=== PATIENT | female | born 1975 | race Caucasian/White ===

== ENCOUNTER → 2018-11-18 17:13 | Outpatient (CLI) | payer MEDICAID, SELFPAY ==
[2018-11-23 17:10] LABS: HPV Reflexed? NOT INDICATED
== END ==
PROVIDERS: Referring Provider Obstetrics & Gynecology; Visit Provider Obstetrics & Gynecology
DX: Z12.4 Encounter for screening for malignant neoplasm of cervix (principal)
CPT/HCPCS: 88175; G0145

== ENCOUNTER → 2018-12-13 14:50 | Outpatient (CLI) | payer MEDICAID, SELFPAY ==
--- NOTE | 2018-12-13 14:53 | BI_ITS ---
MAMMOGRAPHY - BILATERAL SCREENING REASON FOR EXAM: Female, 43 years old. Routine annual screening examination. PERTINENT HISTORY: Aunt with breast cancer. TECHNIQUE: Digital bilateral breast olegario (3D mammographic acquisition) in the CC and MLO projections. 2-D mediolateral oblique (MLO) and craniocaudad (CC) views of both breasts were obtained. CAD: Full Field Digital Mammography with Computer Added Detection was performed. COMPARISON: Comparison is made with prior study dated November 13, 2014. FINDINGS: Breast Composition: The breasts are heterogeneously dense, which may obscure small masses. There are no dominant masses or suspicious calcifications. Stable benign-appearing bilateral axillary lymph nodes. No other significant abnormalities are identified. There has been no significant change since the prior study. BI/SCREENING MAMM (CAD), BILAT IMPRESSION: Stable bilateral screening mammogram. Yearly follow-up mammogram recommended. (A) ASSESSMENT CATEGORY: BIRADS Category 2: Benign. A letter regarding these results will be sent to the patient by the facility within 30 days. Approximately 10% of breast cancers are not detected by mammography. A normal mammogram should not delay biopsy of a clinically suspicious abnormality. [id number] Electronically Signed: Brent Martinez, at 15:53 EDT , Service support ,
== END ==
PROVIDERS: Referring Provider Obstetrics & Gynecology; Visit Provider Obstetrics & Gynecology
DX: Z12.31 Encounter for screening mammogram for malignant neoplasm of breast (principal); Z80.3 Family history of malignant neoplasm of breast
CPT/HCPCS: 77063; 77067

== ENCOUNTER 2020-01-09 18:40 | Emergency (ER) | payer OTHER, SELFPAY ==
[2020-01-09 18:41] VITALS: BP 113/59; PULSE 66; RESP 18; TEMP 36.4; O2SAT 100; BMI 23.0
--- NOTE | 2020-01-09 18:51 | RAD_ITS ---
STUDY: X-RAY - LEFT TIBIA AND FIBULA REASON FOR EXAM: Female, 44 years old. Pain after trauma TECHNIQUE: 3 view(s) of the tibia and fibula were obtained. COMPARISON: None. FINDINGS: Normal visualized tibia. Normal visualized fibula. Incidental note made of an oval bone island in the distal tibia The soft tissue structures are unremarkable. RAD/Tibia & Fibula 2 Views IMPRESSION: No acute or suspicious findings Electronically Signed: Chema Soni MD at 19:27 EDT , Service support ,
--- NOTE | 2020-01-09 18:53 | ED.DCSUM_ITS ---
- ER Visit Summary Date of Service: 01/09/20 Chief Complaint: Left leg injury History of Present Illness: The patient is a 44 F who has a left leg injury. She was trying to sort a bowl when the ball knocked a gate over onto her left leg. She sustained a large abrasion to the left lateral calf area. She now has pain in this left leg. Is worse with walking. She took no medications for this at home. Denies any other injuries. Physical Examination: Vital signs are reviewed. Left leg, ankle and foot exam shows some mild diffuse tenderness. There is some focal swelling of the left lateral calf. She has diffuse abrasions to the left lateral calf down to the ankle. She has full range of motion with pain in these areas. She has a 2+ DP pulse. Test Results: X-rays are negative for fracture Emergency Department Course and Treatment: The patient's tetanus was updated. Her wounds were cleansed. She does have multiple abrasions but no broken bones. Patient was educated to use ice, elevation and NSAIDs for pain at home. She will follow-up with her PCP. Treatment Plan: [] Disposition: Discharge Impression: Lower leg contusion, left lower leg abrasions This note was generated with [employer] dictation software. It may contain incorrect words, spelling, and punctuation that were not noted in review of the chart prior to signing ED Disposition - Plan for ED Patient: Disposition: Home or Assisted Living Instructions: ED EXTREMITY CONTUSION Lower Referrals: Care Physician,No Primary [Primary Care Provider] -
[2020-01-09] MEDS: Diphth,Pertuss(Acell),Tet Vac 0.5 ML Vial IM (18:59)
[2020-01-09] MEDS: Naproxen 500 MG Tablet PO (18:59)
--- NOTE | 2020-01-09 19:10 | RAD_ITS ---
STUDY: X-RAY - LEFT FOOT CLINICAL: Female, 44 years old. Pain after trauma TECHNIQUE: 3 view(s) of the foot. COMPARISON: None. FINDINGS: Normal talus, calcaneus, and tarsal bones. Normal visualized subtalar, talonavicular, calcaneocuboid, tarsal and tarsometatarsal articulations. Normal metatarsi. Normal metatarsophalangeal joint of the great toe. Normal tibial and fibular sesamoid bones. Normal interphalangeal joint of the great toe. Normal phalanges of the great toe. Normal second through fifth metatarsophalangeal joints. Normal interphalangeal joints and phalanges of the lesser toes. The soft tissue structures are unremarkable. Incidental note made of an oval bone island in the distal tibia. RAD/Foot min 3 Views IMPRESSION: Normal x-ray examination of the foot. Electronically Signed: Chema Soni MD at 19:28 EDT , Service support ,
== END 2020-01-09 19:55 | disposition home or self-care (01) ==
PROVIDERS: Emergency Provider Emergency Medicine
DX: S80.12XA Contusion of left lower leg, initial encounter (principal); S80.812A Abrasion, left lower leg, initial encounter; W22.8XXA Striking against or struck by other objects, initial encounter; Y93.9 Activity, unspecified; Y92.9 Unspecified place or not applicable
CPT/HCPCS: 73590; 73630; 90471; 90715; 99283

== ENCOUNTER → 2021-11-29 | Outpatient (CLI) | payer OTHER, SELFPAY ==
--- NOTE | 2021-11-29 11:57 | BI_ITS ---
MAMMOGRAPHY - BILATERAL SCREENING REASON FOR EXAM: Female, 46 years old. Routine annual screening examination. PERTINENT HISTORY: Aunt with breast cancer. TECHNIQUE: Digital bilateral breast francisco (3D mammographic acquisition) in the CC and MLO projections. 2-D mediolateral oblique (MLO) and craniocaudad (CC) views of both breasts were obtained. CAD: Full Field Digital Mammography with Computer Added Detection was performed. COMPARISON: Comparison is made with prior study dated 12/13/2018 and 11/13/2014. FINDINGS: Breast Composition: The breasts are heterogeneously dense, which may obscure small masses. There are no dominant masses or suspicious calcifications. Stable benign-appearing bilateral axillary lymph nodes. No other significant abnormalities are identified. There has been no significant change since the prior study. BI/SCRN MAMM (CAD)W/FRANCISCO BILAT IMPRESSION: Stable bilateral screening mammogram. Yearly follow-up mammogram recommended. (A) ASSESSMENT CATEGORY: BIRADS Category 2: Benign. A letter regarding these results will be sent to the patient by the facility within 30 days. Approximately 10% of breast cancers are not detected by mammography. A normal mammogram should not delay biopsy of a clinically suspicious abnormality. [id number] Electronically Signed: Brent Martinez MD at 13:16 EDT ,
== END | disposition home or self-care (01) ==
LOC: OPBI 11:54
PROVIDERS: Visit Provider Obstetrics & Gynecology
DX: Z12.31 Encounter for screening mammogram for malignant neoplasm of breast (principal)
CPT/HCPCS: 77063; 77067

== ENCOUNTER → 2023-08-10 | Outpatient (CLI) | payer OTHER, SELFPAY ==
--- OUTSIDE RECORDS SUMMARY | 2023-08-10 09:57 | XMS RPT_ITS | CCD ---
Author Name Unknown Address [facility] [address] [place] [address] Organization [facility] Care Team Providers Care Assistant Food Service Director Name Role Phone Unavailable Primary Care Provider Unavailabl e Medications Current Medications Medication Drug Class(es) Dates Sig (Normalized) Sig (Original) nitrofurantoin, macrocrystals 25 mg / nitrofurantoin, monohydrate 75 mg oral capsule (2 sources) Nitrofuran Antibacterial Start: 03-04-2023 End: 03-11-2023 take 1 capsule by mouth twice daily at mealtime nitrofurantoin monohydrate and macrocrystal (MACROBID) 100 mg capsule Take 1 capsule by mouth twice daily with meals for 7 days. 14 capsule 0 03/04/2023 03/11/2023 Active Problems Problem Classification Problem Date Documented Da te Episodic/Chronic Genitourinary symptoms and ill-defined conditions (1 source) Increased frequency of urination; Translations: [Frequency of micturition] Episodic Urinary tract infections (1 source) Acute urinary tract infection; Translations: [Urinary tract infection, site not specified] 03-04-2023 Episodic Results Test Name Value Interpretation Reference Range Facil ity Vital Signs Date Time Vital Sign Value Performing Clinician Nirali turk 03-04-2023 08:17-0400 Body temperature 98.4 [degF] Tammy Cardozo PA-C Work Phone: [facility] 03-04-2023 08:17-0400 Body weight 73.85 kg Tammy Cardozo PA-C Work Phone: [facility] 03-04-2023 08:17-0400 Diastolic blood pressure 78 mm[Hg] Tammy Cardozo PA-C Work Phone: [facility] 03-04-2023 08:17-0400 Heart rate 76 /min Tammy Athy PA-C Work Phone: [facility] 03-04-2023 08:17-0400 Respiratory rate 16 /min Tammy Athy PA-C Work Phone: [facility] 03-04-2023 08:17-0400 SaO2% (BldA) [Mass fraction] 98 % Tammy Athy PA-C Work Phone: [facility] 03-04-2023 08:17-0400 Systolic blood pressure 118 mm[Hg] Tammy Athy PA-C Work Phone: [facility] 01-21-2023 10:56-0400 Body temperature 97.7 [degF] Tammy Athy PA-C Work Phone: [facility] 01-21-2023 10:56-0400 Body weight 73.94 kg Tammy Athy PA-C Work Phone: [facility] 01-21-2023 10:56-0400 Diastolic blood pressure 86 mm[Hg] Tammy Athy PA-C Work Phone: [facility] 01-21-2023 10:56-0400 Heart rate 80 /min Tammy Athy PA-C Work Phone: [facility] 01-21-2023 10:56-0400 Respiratory rate 18 /min Tammy Athy PA-C Work Phone: [facility] 01-21-2023 10:56-0400 SaO2% (BldA) [Mass fraction] 98 % Tammy Athy PA-C Work Phone: [facility] 01-21-2023 10:56-0400 Systolic blood pressure 124 mm[Hg] Tammy Athy PA-C Work Phone: [facility] Encounters Encounter Date Encounter Type Care Provider Facility Start: 03-04-2023 End: 03-04-2023 ambulatory Facility:[facility] Start: 03-04-2023 End: 03-04-2023 Patient encounter procedure Tammy King Athy PA-C Work Phone: [facility] Procedures Date Procedure Procedure Detail Performing Clinician Start: 03-04-2023 Urnls dip stick/tabl et rgnt auto w/o microscopy Tammy Cardozo PA-C Work Phone: Start: 01-21-2023 Urnls dip stick/tabl et rgnt auto w/o microscopy Tammy Cardozo PA-C Work Phone: Plan of Treatment Date Care Activity Detail Author Start: 04-03-2023 Influenza vaccination [facility] Start: 08-03-2022 DEPRESSION ASSESSMENT DEPRESSION ASSESSMENT [facility] Start: 2018 COLOGUARD (FIT-DNA) COLOGUARD (FIT-DNA) [facility] Start: 2018 Colonoscopy COLONOSCOPY [facility] Start: 2018 COLORECTAL CANCER SCREENING COLORECTAL CANCER SCREENING [facility] Start: [address] COLONOGRAPHY [facility] Start: 2018 DIABETES SCREEN DIABETES SCREEN [facility] Start: 2018 FECAL OCCULT BLOOD FECAL OCCULT BLOOD [facility] Start: 2018 LIPID SCREEN LIPID SCREEN [facility] Start: 2018 SIGMOIDOSCOPY SIGMOIDOSCOPY [facility] Start: 2013 Mammography MAMMOGRAM [facility] Start: 2003 HPV TESTING HPV TESTING [facility] Start: 1994 PAP TESTING PAP TESTING [facility] Start: 1992 Urine microalbumin profile DTAP,TDAP,TD (1 - Tdap) [facility] Start: 1991 HEPATITIS C SCREENING HEPATITIS C SCREENING [facility] Start: 1991 HIV SCREENING HIV SCREENING [facility] Start: 03-08-1974 COVID-19 VACCINE (#1) COVID-19 VACCINE (#1) [facility] Start: 1973 HEPATITIS B (1 of 3 - 3-dose series) HEPATITIS B (1 of 3 - 3-dose series) [facility] Bacteria identified in Urine by Culture URINE CULTURE Microbiology Routine Urinary frequency Ordered: 01/21/2023 [facility] Work Phone: Payers Date Payer Category Payer Private Health Insurance MARLA FLORE[employer] P[employer] [id number] 2021-Present [phone] [address] [place] [address] O [id number] 2021 Private Health Insurance [facility] [id number] Social History Date Type Detail Facility Start: 04-02-2021 End: 01-21-2023 Tobacco smoking status NHIS Never smoked tobacco [facility] Start: 04-02-2021 End: 01-21-2023 Tobacco use and exposure Smokeless tobacco non-user [facility] Start: 1975 Sex Assigned At Not on file [facility] Start: 03-04-2023 History of Social function [facility] Start: 03-04-2023 Tobacco use panel [facility] Progress note 03-04-2023 Note Date & Type Note Facility 03-04-2023 Note HNO ID: [id number] Author: Tammy Cardozo PA-C Service: ? Author Type: Physician Director Of Application Development Type: Progress Notes Filed: 03/04/2023 8:35 AM Note Text: This note was created using Moka. Lesia Anne is a 47 year old female. HPI Patient presents with urinary frequency, burning, urgency over the past day. No blood in urine. She has had some low back pain. No abdominal pain. No fever or vomiting. She did have a UTI about a month and a half ago. Symptoms completely went away from that. She is sexually active. No new partners. No vaginal itching or discharge. Last menstrual cycle was the beginning of January, patient denies chance of . Review of Systems Constitutional: Negative. HENT: Negative. Respiratory: Negative. Cardiovascular: Negative. Gastrointestinal: Negative. Genitourinary: Positive for dysuria, frequency and urgency. Negative for flank pain, hematuria, pelvic pain, vaginal bleeding, vaginal discharge and vaginal pain. Musculoskeletal: Positive for back pain. All other systems reviewed and are negative. No past medical history on file. Current Outpatient Medications Medication Sig Dispense Refill nitrofurantoin monohydrate and macrocrystal (MACROBID) 100 mg capsule Take 1 capsule by mouth twice daily with meals for 7 days. 14 capsule 0 No current facility-administered medications for this visit. No past surgical history on file. No family history on file. Social History Tobacco Use Smoking status: Never Smokeless tobacco: Never Objective BP 118/78 Pulse 76 Temp 36.9 ?C (98.4 ?F) Resp 16 Wt 73.8 kg (162 lb 12.8 oz) LMP 12/03/2022 (Within Days) SpO2 98% Physical Exam Vitals reviewed. Constitutional: Appearance: Normal appearance. HENT: Head: Normocephalic and atraumatic. Cardiovascular: Rate and Rhythm: Normal rate and regular rhythm. Heart sounds: Normal heart sounds. Pulmonary: Effort: Pulmonary effort is normal. Breath sounds: Normal breath sounds. Abdominal: General: Abdomen is flat. Palpations: Abdomen is soft. Tenderness: There is no abdominal tenderness. There is no right CVA tenderness, left CVA tenderness or guarding. Skin: General: Skin is warm and dry. Neurological: Mental Status: She is alert. Assessment and Plan ASSESSMENT/PLAN: 1. Acute UTI - ICD9: 599.0, ICD10: N39.0 acute - UA - patient took azo this am - Send urine for culture - Begin treatment with Macrobid 100 mg BID for 7 days - UA DIP, URINE (POC) - URINE CULTURE Tammy Cardozo PA-C [facility] History of Present illness Narrative 03-04-2023 Tammy Cardozo PA-C - 03/04/2023 8:33 AM EDT Note Date & Type Note Facility 03-04-2023 History of Presen t illness Narrative This note was created using Ecopolriter. Subjective Sharron Anne is a 47 year old female. HPI Patient presents with urinary frequency, burning, urgency over the past day. No blood in urine. She has had some low back pain. No abdominal pain. No fever or vomiting. She did have a UTI about a month and a half ago. Symptoms completely went away from that. She is sexually active. No new partners. No vaginal itching or discharge. Last menstrual cycle was the beginning of January, patient denies chance of . Review of Systems Constitutional: Negative. HENT: Negative. Respiratory: Negative. Cardiovascular: Negative. Gastrointestinal: Negative. Genitourinary: Positive for dysuria, frequency and urgency. Negative for flank pain, hematuria, pelvic pain, vaginal bleeding, vaginal discharge and vaginal pain. Musculoskeletal: Positive for back pain. All other systems reviewed and are negative. No past medical history on file. Current Outpatient Medications Medication Sig Dispense Refill nitrofurantoin monohydrate and macrocrystal (MACROBID) 100 mg capsule Take 1 capsule by mouth twice daily with meals for 7 days. 14 capsule 0 No current facility-administered medications for this visit. No past surgical history on file. No family history on file. Social History Tobacco Use Smoking status: Never Smokeless tobacco: Never Objective BP 118/78 Pulse 76 Temp 36.9 C (98.4 F) Resp 16 Wt 73.8 kg (162 lb 12.8 oz) LMP 12/03/2022 (Within Days) SpO2 98% Physical Exam Vitals reviewed. Constitutional: Appearance: Normal appearance. HENT: Head: Normocephalic and atraumatic. Cardiovascular: Rate and Rhythm: Normal rate and regular rhythm. Heart sounds: Normal heart sounds. Pulmonary: Effort: Pulmonary effort is normal. Breath sounds: Normal breath sounds. Abdominal: General: Abdomen is flat. Palpations: Abdomen is soft. Tenderness: There is no abdominal tenderness. There is no right CVA tenderness, left CVA tenderness or guarding. Skin: General: Skin is warm and dry. Neurological: Mental Status: She is alert. Assessment and Plan ASSESSMENT/PLAN: 1. Acute UTI - ICD9: 599.0, ICD10: N39.0 acute - UA - patient took azo this am - Send urine for culture - Begin treatment with Macrobid 100 mg BID for 7 days - UA DIP, URINE (POC) - URINE CULTURE Tammy Cardozo PA-C documented in this encounter [facility] Progress note 01-21-2023 Note Date & Type Note Facility 01-21-2023 Note HNO ID: [id number] Author: aTmmy Cardozo PA-C Service: ? Author Type: Physician Director Of Application Development Type: Progress Notes Filed: 01/21/2023 11:31 AM Note Text: This note was created using Ecopolriter. Lesia Anne is a 47 year old female. HPI Patient presents with a chief complaint of urinary frequency, urgency and dysuria since last evening. She denies fever, abdominal pain or back pain. No vomiting. Denies vaginal itching or discharge. No concern for STD. Denies chance of . Review of Systems Constitutional: Negative. HENT: Negative. Respiratory: Negative. Cardiovascular: Negative. Gastrointestinal: Negative. Genitourinary: Positive for dysuria, frequency and urgency. Negative for hematuria, pelvic pain, vaginal bleeding, vaginal discharge and vaginal pain. Musculoskeletal: Negative for back pain. All other systems reviewed and are negative. No past medical history on file. Current Outpatient Medications Medication Sig Dispense Refill nitrofurantoin monohydrate and macrocrystal (MACROBID) 100 mg capsule Take 1 capsule by mouth twice daily with meals for 5 days. 10 capsule 0 No current facility-administered medications for this visit. No past surgical history on file. No family history on file. Social History Tobacco Use Smoking status: Never Smokeless tobacco: Never Objective BP 124/86 Pulse 80 Temp 36.5 ?C (97.7 ?F) Resp 18 Wt 73.9 kg (163 lb) LMP 12/03/2022 (Within Days) SpO2 98% Physical Exam Vitals reviewed. Constitutional: Appearance: Normal appearance. HENT: Head: Normocephalic and atraumatic. Cardiovascular: Rate and Rhythm: Normal rate and regular rhythm. Heart sounds: Normal heart sounds. Pulmonary: Effort: Pulmonary effort is normal. Breath sounds: Normal breath sounds. Abdominal: General: Abdomen is flat. Palpations: Abdomen is soft. Tenderness: There is no abdominal tenderness. There is no right CVA tenderness, left CVA tenderness or guarding. Skin: General: Skin is warm and dry. Neurological: General: No focal deficit present. Mental Status: She is alert and oriented to person, place, and time. Assessment and Plan ASSESSMENT/PLAN: 1. Urinary frequency - ICD9: 788.41, ICD10: R35.0 acute - UA positive for zaira esterase and hematuria, nitrates - Send urine for culture - Patient education for prevention given - UA DIP, URINE (POC) - URINE CULTURE Tammy Cardozo PA-C [facility] History of Present illness Narrative 01-21-2023 Tammy Cardozo PA-C - 01/21/2023 11:28 AM EDT Note Date & Type Note Facility 06-21-2023 History of Presen t illness Narrative This note was created using Medivanceter. Lesia Anne is a 47 year old female. HPI Patient presents with a chief complaint of urinary frequency, urgency and dysuria since last evening. She denies fever, abdominal pain or back pain. No vomiting. Denies vaginal itching or discharge. No concern for STD. Denies chance of . Review of Systems Constitutional: Negative. HENT: Negative. Respiratory: Negative. Cardiovascular: Negative. Gastrointestinal: Negative. Genitourinary: Positive for dysuria, frequency and urgency. Negative for hematuria, pelvic pain, vaginal bleeding, vaginal discharge and vaginal pain. Musculoskeletal: Negative for back pain. All other systems reviewed and are negative. No past medical history on file. Current Outpatient Medications Medication Sig Dispense Refill nitrofurantoin monohydrate and macrocrystal (MACROBID) 100 mg capsule Take 1 capsule by mouth twice daily with meals for 5 days. 10 capsule 0 No current facility-administered medications for this visit. No past surgical history on file. No family history on file. Social History Tobacco Use Smoking status: Never Smokeless tobacco: Never Objective BP 124/86 Pulse 80 Temp 36.5 C (97.7 F) Resp 18 Wt 73.9 kg (163 lb) LMP 12/03/2022 (Within Days) SpO2 98% Physical Exam Vitals reviewed. Constitutional: Appearance: Normal appearance. HENT: Head: Normocephalic and atraumatic. Cardiovascular: Rate and Rhythm: Normal rate and regular rhythm. Heart sounds: Normal heart sounds. Pulmonary: Effort: Pulmonary effort is normal. Breath sounds: Normal breath sounds. Abdominal: General: Abdomen is flat. Palpations: Abdomen is soft. Tenderness: There is no abdominal tenderness. There is no right CVA tenderness, left CVA tenderness or guarding. Skin: General: Skin is warm and dry. Neurological: General: No focal deficit present. Mental Status: She is alert and oriented to person, place, and time. Assessment and Plan ASSESSMENT/PLAN: 1. Urinary frequency - ICD9: 788.41, ICD10: R35.0 acute - UA positive for zaira esterase and hematuria, nitrates - Send urine for culture - Patient education for prevention given - UA DIP, URINE (POC) - URINE CULTURE Tammy Cardozo PA-C documented in this encounter [facility] Progress note 01-21-2023 Note Date & Type Note Facility 01-21-2023 Note HNO ID: [id number] Author: Namrata Morgan Provider Service: ? Author Type: Physician Type: Progress Notes Filed: 01/21/2023 12:24 AM Note Text: null (CCF:Not available [id number]) Visit Summary for Sharron Anne - Gender: Female - Date of : 1975 ( ) Date: - Duration: 3 minutes Patient: Sharron Anne Provider: Kiesha Ardon Patient Contact Information Address [address] [place] [address] [phone] Visit Topics Uti symptoms [Added By: Self - 2023-01-21] Triage Questions REQUIRED: Do you have Medicare or Medicaid Insurance?Answer [No] Do you have a cough, shortness of breath, difficulty breathing, fever, chills, headache, sore throat, muscles aches, acute change in smell or taste?Answer [No] Have you been in contact with anyone confirmed with COVID 19 or suspected of having COVID 19 within the past 14 days?Answer [No] Do you have any vulnerable family members in the home (, , weak immune system, lung disease, active cancer, elderly)?Answer [No] Do you have any of the following: weak immune system, asthma or chronic lung disease, kidney problems and on dialysis, active cancer, diabetes or heart disease or high blood pressure, HIV or organ transplant?Answer [No] Are you currently working in a healthcare facility?Answer [No] What is the address where you are currently located? This is important in case of a medical emergency.Answer [[address]] Please enter a number I can contact you in the event we are disconnected.Answer [[phone]] Conversation Transcripts [Notification] You are connected with Kiesha Ardon Family Physician.[Notification] Sharron Echevarriaz is located in [place].[Notification] Sharron Cecil has shared health history...[Notification] Kiesha Ardon has added a diagnosis/procedure code.[Notification] Kiesha Solisen has added a prescription.[Notification] Kiesha Ardon has added a prescription. Diagnosis Acute cystitis without hematuria Value: N30.00 Code: ICD-10-CM Procedures Value: [id number] Code: CPT-4 OL DIG E/M SVC 11-20 MIN Medications Prescribed Pyridium Dose : 1 tablet Strength : 200 mg Route : oral Frequency : 3 times a day. Refills : 0 Instructions to the Pharmacist : Substitutions allowed Macrobid Dose : 1 capsule Strength : 100 mg Route : oral Frequency : 2 times a day. Refills : 0 Instructions to the Pharmacist : Substitutions allowed Provider Notes Mode of Communication: Video History: This patient has been experiencing urinary symptoms, including: burning, frequency and urgency of urination. There has been no fever, back pain, discharge or significant abdominal pain. Complications from UTI such has hospitalization or resistance: nonePast medical history: NoneMedications: NoneAllergies: NKDA Exam:Gen: Well appearingsounding, in no acute distressAbdomen: no significant TTPCostovertebral angle: Nontender Assessment: Acute cystitis Diagnosis code: N30.00 Acute cystitis without hematuria 1. Medications:abx as below2. Home care:Increase fluid intakeAcetaminophen or ibuprofen as needed for pain or feverMay use OTC Phenazopyridine (Pyridium) up to three times daily as needed for pain3. Referral or follow up:As needed for worsening or if no improvement in 3 daysIf male or a child, may need urgent follow up for urine culture4. Medical decision making:The patient will be treated empirically based on symptoms. Discussed with the patient that there should be some improvement after 48 hours of abx use. Seek in person care if not improving of if symptoms acutely worsens. Additional recommendations:1. If you received a prescription at this visit and you have a question or problem please call [phone] for prescription assistance2. Please print a copy of this note and send it to your regular doctor, or take it to your next visit so it may be included in your medical record 3. Please see your primary care provider on an annual basis or more frequently if directedE Electronically signed by: Kiesha Ardon( ) [facility] History of Present illness Narrative 01-21-2023 [facility] Provider - 01/21/2023 12:18 AM EDT Note Date & Type Note Facility 01-21-2023 History of Presen t illness Narrative null (CCF:Not available AMW:[id number]) Visit Summary for Sharron Anne - Gender: Female - Date of : 1975 ( ) Date: - Duration: 3 minutes Patient: Sharron Anne Provider: Kiesha Ardon Patient Contact Information Address [address] [place] [phone] Visit Topics Uti symptoms [Added By: Self - 2023-01-21] Triage Questions REQUIRED: Do you have Medicare or Medicaid Insurance?Answer [No] Do you have a cough, shortness of breath, difficulty breathing, fever, chills, headache, sore throat, muscles aches, acute change in smell or taste?Answer [No] Have you been in contact with anyone confirmed with COVID 19 or suspected of having COVID 19 within the past 14 days?Answer [No] Do you have any vulnerable family members in the home (, , weak immune system, lung disease, active cancer, elderly)?Answer [No] Do you have any of the following: weak immune system, asthma or chronic lung disease, kidney problems and on dialysis, active cancer, diabetes or heart disease or high blood pressure, HIV or organ transplant?Answer [No] Are you currently working in a healthcare facility?Answer [No] What is the address where you are currently located? This is important in case of a medical emergency.Answer [[address] [facility]] Please enter a number I can contact you in the event we are disconnected.Answer [[phone]] Conversation Transcripts [Notification] You are connected with Kiesha Ardon Family Physician.[Notification] Sharron Anne is located in [place].[Notification] Sharron Anne has shared health history...[Notification] Kiesha Ardon has added a diagnosis/procedure code.[Notification] Kiesha Ardon has added a prescription.[Notification] Kiesha Ardon has added a prescription. Diagnosis Acute cystitis without hematuria Value: N30.00 Code: ICD-10-CM Procedures Value: [id number] Code: CPT-4 OL DIG E/M SVC 11-20 MIN Medications Prescribed Pyridium Dose : 1 tablet Strength : 200 mg Route : oral Frequency : 3 times a day. Refills : 0 Instructions to the Pharmacist : Substitutions allowed Macrobid Dose : 1 capsule Strength : 100 mg Route : oral Frequency : 2 times a day. Refills : 0 Instructions to the Pharmacist : Substitutions allowed Provider Notes Mode of Communication: Video History: This patient has been experiencing urinary symptoms, including: burning, frequency and urgency of urination. There has been no fever, back pain, discharge or significant abdominal pain. Complications from UTI such has hospitalization or resistance: nonePast medical history: NoneMedications: NoneAllergies: NKDA Exam:Gen: Well appearing\sounding, in no acute distressAbdomen: no significant TTPCostovertebral angle: Nontender Assessment: Acute cystitis Diagnosis code: N30.00 Acute cystitis without hematuria 1. Medications:abx as below2. Home care:Increase fluid intakeAcetaminophen or ibuprofen as needed for pain or feverMay use OTC Phenazopyridine (Pyridium) up to three times daily as needed for pain3. Referral or follow up:As needed for worsening or if no improvement in 3 daysIf male or a child, may need urgent follow up for urine culture4. Medical decision making:The patient will be treated empirically based on symptoms. Discussed with the patient that there should be some improvement after 48 hours of abx use. Seek in person care if not improving of if symptoms acutely worsens. Additional recommendations:1. If you received a prescription at this visit and you have a question or problem please call [phone] for prescription assistance2. Please print a copy of this note and send it to your regular doctor, or take it to your next visit so it may be included in your medical record 3. Please see your primary care provider on an annual basis or more frequently if directedE \Electronically signed by: Kiesha Ardon( ) documented in this encounter [facility] Evaluation note Note Date & Type Note Facility documented in this encounter [facility] Evaluation note Note Date & Type Note Facility documented in this encounter [facility] Summary Purpose Family History No Family History Records Found Advance Directives No Advanced Directives Records Found Additional Source Comments Source Comments (unrecognize d section and content) In the event this informatio n is protected by the Federal Confidentiality of Alcohol and Drug Abuse Patient Records regulations: The Federal rules restrict any use of the information to criminally investigate or prosecute any alcohol or drug abuse patient.[facility] the event this information is protected by the Federal Confidentiality of Alcohol and Drug Abuse Patient Records regulations: The Federal rules restrict any use of the information to criminally investigate or prosecute any alcohol or drug abuse [facility] the event this information is protected by the Federal Confidentiality of Alcohol and Drug Abuse Patient Records regulations: The Federal rules restrict any use of the information to criminally investigate or prosecute any alcohol or drug abuse patient.[facility] Reason for Visit (unrecogniz ed section and content) Reason Comments Urinary Problem Burning, freq, urge, x 1 day, INFORMATION SOURCE (unrecogn ized section and content) FOR RECORDS PERTAINING TO PATIENTS WHO ARE OR HAVE BEEN ENROLLED IN A CHEMICAL DEPENDENCY/SUBSTANCEABUSE PROGRAM, SOME INFORMATION MAY BE OMITTED. This clinical summary was aggregated from multiple sources. Caution should be exercised in using it in the provision of clinical care. This summary normalizes information from multiple sources, and as a consequence, information in this document may materially change the coding, format and clinical context of patient data. In addition, data may be omitted in some cases. CLINICAL DECISIONS SHOULD BE BASED ON THE PRIMARY CLINICAL RECORDS. [facility]. provides no warranty or guarantee of the accuracy or completeness of information in this document.
[2023-08-10 12:22] LABS: Absolute Neutrophil Count 4.9 X10^3/uL (2.0-7.7); Basophil# 0.04 X10^3/uL; Basophil% 0.6 % (0-1); Eosinophil# 0.15 X10^3/uL; Eosinophils% 2.2 % (0-5); Hematocrit 43.7 % (37-47); Hemoglobin 13.8 g/dL (12.0-15.0); Lymphocyte % 19.2 % (19-41); Mean Corp Hgb Conc 31.6 g/dL (32-36); Mean Corpuscular Hgb 27.9 pg (27.0-32.0); Mean Corpuscular Volume 88.5 fL (81-99); Mean Platelet Vol. 10.6 fl (6.2-12.0); Monocyte% 5.9 % (0-10); NRBC Flagged by Analyzer 0 % (0-5); Neutrophil # 4.86 X10^3/uL (2.7-7.7); Neutrophil % 71.8 % (47-70); Platelet Count 292 K/mm3 (150-450); RBC Distribution Width CV 12.8 % (11.6-14.6); RBC Distribution Width SD 41.6 fl (35.1-43.9); Red Blood Count 4.94 M/mm3 (4.2-5.4); White Blood Count 6.8 K/mm3 (4.4-11.0)
[2023-08-10 13:26] LABS: ALB/GLOB Ratio 1.1 RATIO (0.9-2.4); AST(SGOT) 21 U/L (15-37); Alanine Aminotransfer ALT/SGPT 21 U/L (13-56); Albumin, Serum 3.7 g/dL (3.2-5.0); Alkaline Phosphatase 43 U/L (45-117); Anion Gap 5 (5-15); BUN 14 mg/dL (7-18); BUN/Creat Ratio 18.3 RATIO (10-20); Calcium,Total 8.6 mg/dL (8.5-10.1); Chloride 109 mmol/L (98-107); Cholesterol 205 mg/dL (200); Creatinine, Serum 0.76 mg/dL (0.55-1.02); EST Glomerular Filtration Rate 85 mL/min (>60); Est Glom Filt Rate - Afr Amer 103 mL/min (>60); Globulin 3.5 g/dL (2.2-4.2); Glucose 115 mg/dL (74-106); High Density Lipoprotein 58 mg/dL; Potassium 3.8 mmol/L (3.5-5.1); Protein, Total 7.2 g/dL (6.4-8.2); Sodium Level 139 mmol/L (136-145); Triglycerides 132 mg/dL; Very Low Density Lipoprotein 26 mg/dL (5-40)
== END | disposition home or self-care (01) ==
LOC: BFHLAB 09:28
PROVIDERS: PCP Nurse Practitioner Family; Visit Provider Nurse Practitioner Family
DX: Z00.00 Encounter for general adult medical examination without abnormal findings (principal)
CPT/HCPCS: 36415; 80053; 80061; 85025

== ENCOUNTER → 2023-08-17 | Outpatient (CLI) | payer OTHER, SELFPAY ==
--- NOTE | 2023-08-17 13:16 | BI_ITS ---
MAMMOGRAPHY - BILATERAL SCREENING REASON FOR EXAM: Female, 47 years old. Routine annual screening examination. PERTINENT HISTORY: Aunt with breast cancer. TECHNIQUE: Digital bilateral breast francisco (3D mammographic acquisition) in the CC and MLO projections. 2-D mediolateral oblique (MLO) and craniocaudad (CC) views of both breasts were obtained. CAD: Full Field Digital Mammography with Computer Added Detection was performed. COMPARISON: Comparison is made with prior study dated November 29, 2021 and December 13, 2018. FINDINGS: Breast Composition: The breasts are heterogeneously dense, which may obscure small masses. There are no dominant masses or suspicious calcifications. Stable small benign-appearing bilateral axillary lymph nodes. No other significant abnormalities are identified. There has been no significant change since the prior study. BI/SCRN MAMM (CAD)W/FRANCISCO BILAT IMPRESSION: Stable bilateral screening mammogram. Yearly follow-up mammogram recommended. (A) ASSESSMENT CATEGORY: BIRADS Category 2: Benign. A letter regarding these results will be sent to the patient by the facility within 30 days. Approximately 10% of breast cancers are not detected by mammography. A normal mammogram should not delay biopsy of a clinically suspicious abnormality. [id number] Electronically Signed: Brent Martinez MD at 14:34 EST ,
== END | disposition home or self-care (01) ==
LOC: OPBI 13:15
PROVIDERS: PCP Nurse Practitioner Family; Referring Provider Nurse Practitioner Family; Visit Provider Nurse Practitioner Family
DX: Z12.31 Encounter for screening mammogram for malignant neoplasm of breast (principal)
CPT/HCPCS: 77063; 77067